=== PATIENT | male | born 1950 | race Asian ===

== ENCOUNTER 2017-04-19 23:28 | Inpatient (IN) | payer BC ==
[~2017-04-19] VITALS: Ht 167.6 cm; Wt 74.4 kg
[~2017-04-19 23:28] MED LIST: METHADONE5 MG PO; NOR10 PO; OXYCODONE5 M1 PO; TOP50 PO; VIS25 PO
[2017-04-20] VITALS (8 sets, daily range): BP systolic 121–161; BP diastolic 72–83
[2017-04-20 00:40] LABS: BASOPHIL % 0.1 % (0-2); CALCIUM 8.1 mg/dL (8.5-10.1); CARBON DIOXIDE 24.7 mmol/L (21-32); CHLORIDE SERUM 107 mmol/L (98-107); CREATININE SERUM 1.1 mg/dL (0.7-1.3); GFR1 > 60 mL/min; GLUCOSE SERUM 146 mg/dL (74-106); PLATELET COUNT 145 x10^3mcL (130-400); POTASSIUM SERUM 3.2 mmol/L (3.5-5.1); SODIUM SERUM 140 mmol/L (136-145)
[2017-04-20 00:42] LABS: RED CELL DISTRIBUTION WIDTH 14.6 % (11.5-14.5)
[2017-04-20 00:47] LABS: ALKALINE PHOSPHATASE 51 U/L (46-116); ALT/SGPT 36 U/L (16-63); AST/SGOT 40 U/L (15-37); BILIRUBIN TOTAL 1.1 mg/dL (0.20-1.00); TOTAL PROTEIN, SERUM 6.5 g/dL (6.4-8.2)
[2017-04-20 00:50] LABS: ALBUMIN 2.9 g/dL (3.4-5.0)
[2017-04-20 04:15] LABS: RED BLOOD CELLS 4.75 M/mm3 (4.52-5.90)
[2017-04-20 04:25] LABS: MAGNESIUM 1.6 mg/dL (1.8-2.4); PHOSPHOROUS 1.2 mg/dL (2.5-4.9)
[2017-04-20 04:27] LABS: CHOLESTEROL/HDL RATIO 4.2
[2017-04-20 04:31] LABS: FREE T4 1.29 ng/dL (0.76-1.46); FREE THYROXINE INDEX 2.5 ug/dL (1.4-4.5); T4(THYROXINE) 6.5 ug/dL (4.7-13.3)
[2017-04-20 04:36] LABS: T3 TOTAL 0.74 ng/mL
[2017-04-20 07:38] LABS: BASOPHIL % 0.1 % (0-2); PLATELET COUNT 159 x10^3mcL (130-400); RED CELL DISTRIBUTION WIDTH 14.4 % (11.5-14.5)
[2017-04-20 08:32] LABS: IRON 44 ug/dL (65-170)
[2017-04-20 08:38] LABS: TOTAL IRON BINDING CAPACITY 405 ug/dL (250-450)
[2017-04-20 08:51] LABS: microscopic required? NO
[2017-04-20 09:33] LABS: urine erythrocyte NEGATIVE (NEGATIVE)
[2017-04-20 09:50] LABS: AMPHETAMINE QUAL UR NONE DETECTED (NEG <=1000)
[2017-04-21 03:30] VITALS: BP 129/74
[2017-04-21 05:39] LABS: BASOPHIL % 0.3 % (0-2); PLATELET COUNT 160 x10^3mcL (130-400); RED CELL DISTRIBUTION WIDTH 14.4 % (11.5-14.5)
[2017-04-21 06:14] LABS: CALCIUM 7.9 mg/dL (8.5-10.1); CARBON DIOXIDE 27.1 mmol/L (21-32); CHLORIDE SERUM 105 mmol/L (98-107); CREATININE SERUM 0.9 mg/dL (0.7-1.3); GFR1 > 60 mL/min; GLUCOSE SERUM 123 mg/dL (74-106); MAGNESIUM 1.5 mg/dL (1.8-2.4); PHOSPHOROUS 2.1 mg/dL (2.5-4.9); POTASSIUM SERUM 3.1 mmol/L (3.5-5.1); SODIUM SERUM 137 mmol/L (136-145)
[2017-04-21 06:23] LABS: ALBUMIN 2.4 g/dL (3.4-5.0)
[2017-04-21 07:30] VITALS: BP 115/93
[2017-04-21 08:51] VITALS: Ht 167.6 cm; Wt 74.4 kg
[2017-04-21 12:15] VITALS: BP 89/64
[2017-04-21 17:10] VITALS: BP 139/90
[2017-04-21 21:31] VITALS: BP 136/87
[2017-04-22 05:29] VITALS: BP 136/88
[2017-04-22 06:03] LABS: BASOPHIL % 0.5 % (0-2); PLATELET COUNT 181 x10^3mcL (130-400); RED CELL DISTRIBUTION WIDTH 14.1 % (11.5-14.5)
[2017-04-22 06:14] LABS: CALCIUM 8.3 mg/dL (8.5-10.1); CARBON DIOXIDE 24.9 mmol/L (21-32); CHLORIDE SERUM 104 mmol/L (98-107); CREATININE SERUM 0.8 mg/dL (0.7-1.3); GFR1 > 60 mL/min; GLUCOSE SERUM 96 mg/dL (74-106); MAGNESIUM 1.6 mg/dL (1.8-2.4); PHOSPHOROUS 2.7 mg/dL (2.5-4.9); POTASSIUM SERUM 3.5 mmol/L (3.5-5.1); SODIUM SERUM 140 mmol/L (136-145)
[2017-04-22 10:04] VITALS: BP 120/82
[2017-04-22 14:50] VITALS: BP 135/84
[2017-04-22 18:06] VITALS: BP 134/89
[2017-04-22 22:00] VITALS: BP 145/96
[2017-04-23 05:43] VITALS: BP 127/87
[2017-04-23 06:47] LABS: BASOPHIL % 0.3 % (0-2); PLATELET COUNT 176 x10^3mcL (130-400); RED CELL DISTRIBUTION WIDTH 14.4 % (11.5-14.5)
[2017-04-23 07:01] LABS: CALCIUM 8.2 mg/dL (8.5-10.1); CHLORIDE SERUM 106 mmol/L (98-107); CREATININE SERUM 0.9 mg/dL (0.7-1.3); GFR1 > 60 mL/min; GLUCOSE SERUM 97 mg/dL (74-106); MAGNESIUM 1.8 mg/dL (1.8-2.4); POTASSIUM SERUM 3.6 mmol/L (3.5-5.1); SODIUM SERUM 142 mmol/L (136-145)
[2017-04-23 08:54] VITALS: BP 135/81
[2017-04-23 13:37] VITALS: BP 151/99
[2017-04-23 17:56] VITALS: BP 145/97
[2017-04-23 21:51] VITALS: BP 157/95
[2017-04-24 06:24] VITALS: BP 157/96
[2017-04-24 10:38] VITALS: BP 139/93
[2017-04-24 14:27] VITALS: BP 168/102
[2017-04-24 17:51] VITALS: BP 147/94
[2017-04-24 18:05] VITALS: BP 147/94
[2017-04-24 21:27] VITALS: BP 117/84
[2017-04-25 05:30] VITALS: BP 141/95
[2017-04-25 09:53] VITALS: BP 159/93
[2017-04-25 13:13] VITALS: BP 128/86
[2017-04-25] MEDS ORDERED: LEV500PM IV (14:04)
[2017-04-25] MEDS ORDERED: CLINDAMYCI600 MG/50 IV (14:06)
[2017-04-25] MEDS ORDERED: LAC PO (14:07)
[2017-04-25] MEDS ORDERED: PROTONIX40 MG/Pac1 PO (14:08)
[2017-04-25 14:39] VITALS: BP 128/86
== END 2017-04-25 15:45 | DRG 177 ==
LOC: ED 23:28 → IC 04-20 02:42 → DU 04-20 02:42 → IC 04-20 03:11 → DU 04-21 16:58
PROVIDERS: Emergency Medicine; Family Medicine; Internal Medicine; ADMIT Family Medicine
PROC: 0DB78ZX Excision of Stomach, Pylorus, Via Natural or Artificial Opening Endoscopic, Diagnostic (ICD-10-PCS; principal; 2017-04-21 12:30)
DX: J69.0 Pneumonitis due to inhalation of food and vomit (principal); J96.00 Acute respiratory failure, unspecified whether with hypoxia or hypercapnia; E43 Unspecified severe protein-calorie malnutrition; K92.2 Gastrointestinal hemorrhage, unspecified; E87.2 Acidosis; I50.30 Unspecified diastolic (congestive) heart failure; I11.0 Hypertensive heart disease with heart failure; M54.5 Low back pain; G89.29 Other chronic pain; E83.52 Hypercalcemia; E87.6 Hypokalemia; E83.51 Hypocalcemia; E80.6 Other disorders of bilirubin metabolism; F41.9 Anxiety disorder, unspecified; D50.9 Iron deficiency anemia, unspecified; E83.42 Hypomagnesemia; R73.03 Prediabetes; K29.60 Other gastritis without bleeding; Z68.25 Body mass index [BMI] 25.0-25.9, adult; Z87.891 Personal history of nicotine dependence; Z79.891 Long term (current) use of opiate analgesic; Z87.11 Personal history of peptic ulcer disease; Z79.899 Other long term (current) drug therapy
CPT/HCPCS: 36600; 43235; 82962; 83880; 84439; 97110-GP; 97116-GP; 97530-GP; C9113; J0456; J0696; J1200; J1610; J1940; J1956; J2250; J2270; J2310; J2405; J2550; J2765; J3010; J3475; J3480; J3490; J7030; J7040; J7050; J7613; J7620; Q0092

== ENCOUNTER 2017-05-11 02:55 | Observation (INO) | payer OTHER, BC ==
[~2017-05-11] VITALS: Ht 167.6 cm; Wt 71.4 kg
[~2017-05-11 02:55] MED LIST changes: +CLINDAMYCI600 MG/50 IV; +LAC PO; +LEV500PM IV; +PROTONIX40 MG/Pac1 PO
--- NOTE | 2017-05-11 03:15 | NUR ---
PT PRESENTS TO ED WITH C/O ALOC. PT AROUSABLE TO VERBAL STIMULI AND ORIENTED TO PERSON AND PLACE. WHEN ASKED THE YEAR PT STATES "[id number]". PER DTR, PT WOKE UP AROUND 0200 AND TRIED GOING OUTSIDE. PER DTR, PT WAS WALKING IN THE DARK AND "HE HAD A KNIFE, SCISSORS AND COMPUTER MOUSE AND CUT HIS PANTS". WHEN ASKED PT WHY HE CUT HIS PANTS HE STATES, "I WANTED TO SEE WHAT WOULD HAPPEN". PT PLACED ON 02 9L VIA NRB. PT DENIES ANY PAIN OR DISCOMFORT. BED IN LOW POSITION. DTR AT BEDSIDE. CALL LIGHT WITHIN REACH.
--- NOTE | 2017-05-11 03:32 | NUR ---
DR. MCDONOUGH AT BEDSIDE FOR MSE.
[2017-05-11 04:05] LABS: CARBON DIOXIDE 22.4 mmol/L (21-32); CREATININE SERUM 1.6 mg/dL (0.7-1.3); POTASSIUM SERUM 4.1 mmol/L (3.5-5.1)
[2017-05-11 04:10] LABS: BASOPHIL % 0.4 % (0-2); BILIRUBIN TOTAL 1.19 mg/dL (0.20-1.00); PLATELET COUNT 170 x10^3mcL (130-400); TOTAL PROTEIN, SERUM 7.1 g/dL (6.4-8.2)
[2017-05-11 04:11] LABS: RED CELL DISTRIBUTION WIDTH 14.8 % (11.5-14.5)
[2017-05-11 04:14] LABS: ALBUMIN 3.1 g/dL (3.4-5.0)
--- NOTE | 2017-05-11 04:14 | NUR ---
PT SLEEPING IN BED, IN POSITION OF COMFORT. EASILY AROUSABLE TO VERBAL STIMULI. RESPIRATIONS EVEN AND UNLABORED. NO ACUTE DISTRESS NOTED. BED IN LOW POSITION. CALL LIGHT WITHIN REACH.
[2017-05-11 04:21] LABS: microscopic required? NO
[2017-05-11 04:32] LABS: urine erythrocyte NEGATIVE (NEGATIVE)
[2017-05-11] MEDS ORDERED: OXYCODONE HYDROC5 M2 PO (04:49)
[2017-05-11] MEDS ORDERED: MSC100 PO (04:50)
[2017-05-11] MEDS ORDERED: NOR10 PO ×2 (04:51→20:15)
[2017-05-11] MEDS ORDERED: METHADONE HCL5 MG PO (04:51)
[2017-05-11] MEDS ORDERED: METOPROLOL SUCC50 M2 PO (04:51)
[2017-05-11] MEDS ORDERED: PANTOPRAZOLE SO40 M1 PO (04:52)
--- NOTE | 2017-05-11 06:26 | NUR ---
LAB AT BEDSIDE.
[2017-05-11 07:32] LABS: T3 TOTAL 1.01 ng/mL
[2017-05-11 07:35] LABS: MAGNESIUM 1.4 mg/dL (1.8-2.4); PHOSPHOROUS 2.4 mg/dL (2.5-4.9)
[2017-05-11 07:45] LABS: FREE T4 1.06 ng/dL (0.76-1.46); FREE THYROXINE INDEX 2.6 ug/dL (1.4-4.5); T4(THYROXINE) 7.1 ug/dL (4.7-13.3)
--- NOTE | 2017-05-11 07:48 | NUR ---
PT RESTING IN A SEMI-FOWLERS POSITION IN LOW POSITIONED BED WITH SIDE RAILS UP X 2 AND CALL LIGHT WITHIN REACH. PTS DAUGHTER AT BEDSIDE WITH THE PT.
--- NOTE | 2017-05-11 07:49 | NUR ---
PT IS A/O X 4 AND ANSWERING QUESTIONS APPROPRIATELY. NON-REBREATHER REMOVED AND PT PLACED ON NC AT 3L/M. PTS O2 IS 98%.
--- NOTE | 2017-05-11 08:04 | NUR ---
REPORT CALLED TO LIU CABRAL TO ASSUME CARE FOR THIS PT POST TRANSFER FROM ED TO TELE UNIT
[2017-05-11 08:47] VITALS: BP 103/75
--- NOTE | 2017-05-11 10:07 | NUR ---
PT ON BED, AWAKE, ALERT, AND ORIENTED. HAS NO COMPLAINT OF PAIN, SOB, OR DIZZINESS. RESPONDS WELL TO QUESTION AND ANSWER. PT IS MANDRAIN SPEAKING ONLY. DAUGHTER AT BEDSIDE PROVIDING TRANSLATION. DIMINISHED JESSICA BASES ON 4LNC WITH SYMMETRICAL CHEST EXPANSION AND UNLABORED. ACTIVE BOWEL SOUNDS NOTED. SIDE RAILS UP, CALL LIGHT WITHIN REACH, WILL CONTINUE TO MONITOR
--- NOTE | 2017-05-11 12:52 | NUR ---
PT ON BED, ASLEEP. WILL CONTINUE TO MONITOR
[2017-05-11 13:54] VITALS: BP 110/72
--- NOTE | 2017-05-11 15:00 | NUR ---
PT ON BED, AWAKE, ALERT, AND ORIENTED. HAS NO COMPLAINT OF PAIN, SOB, OR DIZZINESS
[2017-05-11 17:24] VITALS: BP 113/79
--- NOTE | 2017-05-11 17:28 | NUR ---
PT ON BED, ASLEEP. WILL CONTINUE TO MONITOR
[2017-05-11 17:58] VITALS: BP 113/79
[2017-05-11 18:36] LABS: IRON 57 ug/dL (65-170); TOTAL IRON BINDING CAPACITY 260 ug/dL (250-450)
[2017-05-11 19:02] LABS: RED BLOOD CELLS 4.93 M/mm3 (4.52-5.90)
--- NOTE | 2017-05-11 19:50 | NUR ---
PT IS AAOX4. MANDARIN SPEAKING. LUNGS SOUNDS ARE DIMINISHED BILATERALLY, PT ON 3L NC. EVEN, UNLABORED BREATHING. DENIES ANY PAIN AT THIS TIME. BOWEL SOUNDS ACTIVE. NO EDEMA PRESENT. BED IN LOWEST POSITION AND CALL LIGHT IS WITHIN REACH. WILL CONTINUE TO MONITOR.
[2017-05-11] MEDS ORDERED: DIOVAN HCT1 TA1 PO (20:12)
[2017-05-11] MEDS ORDERED: TOPROL XL25 MG PO (20:14)
[2017-05-11] MEDS ORDERED: OMEPRAZOLE40 M1 PO (20:14)
[2017-05-11] MEDS ORDERED: HYDROXYZINE HYD25 MG PO (20:16)
--- NOTE | 2017-05-11 20:19 | NUR ---
MED RECORD HAS BEEN UPDATED WITH PT'S HOME MEDICATIONS. DAUGHTER TOOK THE MEDICATIONS HOME, SHE STATED SHE WILL BRING THEM BACK TOMORROW WHEN SHE VISITS. PAGE GATED DR. FLORES ABOUT THE MATTER. AWAITING ORDERS.
[2017-05-11 20:55] VITALS: BP 108/69
--- NOTE | 2017-05-11 21:30 | NUR ---
SPOKE WITH DR. FARLEY, HE APPROVED THE NECESSARY MEDICATIONS, WILL ENDORSE TO MORNING SHIFT.
--- NOTE | 2017-05-12 01:04 | NUR ---
PT SLEEPING COMFORTABLY. NO ACUTE DISTRESS NOTED. BED IN LOWEST POSITION AND CALL LIGHT WITHIN REACH. WILL CONTINUE TO MONITOR.
[2017-05-12 05:09] VITALS: BP 123/76
--- NOTE | 2017-05-12 05:25 | NUR ---
PT IS RESTING COMFORTABLY IN BED. EVEN, UNLABORED BREATHING. ALL NEEDS HAVE BEEN MET. PT DENIES ANY PAIN. BED IN LOWEST POSITION AND CALL LIGHT WITHIN REACH. WILL ENDORSE TO MORNING SHIFT.
[2017-05-12 05:52] LABS: BASOPHIL % 0.2 % (0-2); PLATELET COUNT 160 x10^3mcL (130-400)
[2017-05-12 05:57] LABS: CALCIUM 8.5 mg/dL (8.5-10.1); CARBON DIOXIDE 26.7 mmol/L (21-32); CHLORIDE SERUM 104 mmol/L (98-107); GFR1 > 60 mL/min; GLUCOSE SERUM 167 mg/dL (74-106); PHOSPHOROUS 1.8 mg/dL (2.5-4.9); POTASSIUM SERUM 3.6 mmol/L (3.5-5.1); RED CELL DISTRIBUTION WIDTH 15.5 % (11.5-14.5); SODIUM SERUM 142 mmol/L (136-145)
--- NOTE | 2017-05-12 08:36 | NUR ---
AM ROUNDS DONE BY DR. ABDUL AND MEDICAL TEAM, PLAN TO DC HOME TODAY.
[2017-05-12 09:43] VITALS: BP 113/72
[2017-05-12 13:16] VITALS: Ht 167.6 cm; Wt 71.4 kg
[2017-05-12 13:53] VITALS: BP 119/75
[2017-05-12] MEDS ORDERED: CLEOCIN HCL300 MG PO (15:49)
[2017-05-12] MEDS ORDERED: LEVAQUIN750 MG PO (15:51)
[2017-05-12] MEDS ORDERED: LAC PO (15:52)
[2017-05-12 16:29] VITALS: BP 119/75
--- NOTE | 2017-05-12 17:21 | NUR ---
PT DC'D HOME IN NO DISTRESS. AWAKE ALERT AND ORIENTED. NO CHANGES IN VS. NO C/O PAIN OR DISCOMFORT. DC INSTRUCTIONS REVIEWED WITH PT AND DAUGHTER. RX GIVEN. HL REMOVED AND SITE CLEAR. PERSONAL BELONGINGS TAKEN HOME.
== END 2017-05-12 17:00 | disposition home or self-care (01) | DRG 177 ==
LOC: ED 02:55 → DU 07:09
PROVIDERS: Emergency Medicine; ADMIT Family Medicine
DX: J69.0 Pneumonitis due to inhalation of food and vomit (principal); N17.0 Acute kidney failure with tubular necrosis; E44.0 Moderate protein-calorie malnutrition; E83.39 Other disorders of phosphorus metabolism; E83.42 Hypomagnesemia; D50.9 Iron deficiency anemia, unspecified; I10 Essential (primary) hypertension; M54.5 Low back pain; G89.29 Other chronic pain; Z68.25 Body mass index [BMI] 25.0-25.9, adult; Z79.891 Long term (current) use of opiate analgesic
CPT/HCPCS: 36600; 82962; 83880; 84439; G0378; J1940; J2543; J2930; J3475; J7030; Q0092

== ENCOUNTER 2017-06-05 20:41 | Emergency (ER) | payer OTHER, BC ==
[~2017-06-05 20:41] MED LIST changes: +CLEOCIN HCL300 MG PO; +DIOVAN HCT1 TA1 PO; +HYDROXYZINE HYD25 MG PO; +LEVAQUIN750 MG PO; +METHADONE HCL5 MG PO; +METOPROLOL SUCC50 M2 PO; +MSC100 PO; +OMEPRAZOLE40 M1 PO; +OXYCODONE HYDROC5 M2 PO; +PANTOPRAZOLE SO40 M1 PO; +TOPROL XL25 MG PO
[2017-06-05 22:00] LABS: BASOPHIL % 0.3 % (0-2); PLATELET COUNT 318 x10^3mcL (130-400); RED CELL DISTRIBUTION WIDTH 14.4 % (11.5-14.5)
[2017-06-05 22:04] LABS: microscopic required? NO
[2017-06-05 22:14] LABS: urine erythrocyte NEGATIVE (NEGATIVE)
[2017-06-05 22:15] LABS: ALBUMIN 3.2 g/dL (3.4-5.0); ALKALINE PHOSPHATASE 78 U/L (46-116); ALT/SGPT 95 U/L (16-63); AST/SGOT 91 U/L (15-37); BILIRUBIN TOTAL 0.6 mg/dL (0.20-1.00); CARBON DIOXIDE 28.6 mmol/L (21-32); CHLORIDE SERUM 101 mmol/L (98-107); CHOLESTEROL 184 mg/dL (<200); GFR1 > 60 mL/min; GLUCOSE SERUM 137 mg/dL (74-106); HDL CHOLESTEROL 29 mg/dL (40-60); MAGNESIUM 1.7 mg/dL (1.8-2.4); SODIUM SERUM 136 mmol/L (136-145); TOTAL PROTEIN, SERUM 7.6 g/dL (6.4-8.2)
[2017-06-05 22:18] LABS: POTASSIUM SERUM 2.9 mmol/L (3.5-5.1)
[2017-06-05 22:23] LABS: AMPHETAMINE QUAL UR NONE DETECTED (NEG <=1000)
[2017-06-05 22:25] LABS: T4(THYROXINE) 9.2 ug/dL (4.7-13.3)
[2017-06-06 00:11] VITALS: BP 125/79
== END 2017-06-06 00:11 | disposition home or self-care (01) ==
LOC: ED 20:41
PROVIDERS: Emergency Medicine
DX: R53.1 Weakness (principal); R42 Dizziness and giddiness; E87.6 Hypokalemia; E46 Unspecified protein-calorie malnutrition; I10 Essential (primary) hypertension; E11.9 Type 2 diabetes mellitus without complications; G89.29 Other chronic pain; M54.9 Dorsalgia, unspecified
CPT/HCPCS: 82962; 83880; J7030; Q0092

== ENCOUNTER 2017-06-27 17:13 | Emergency (ER) | payer OTHER, BC ==
[2017-06-27 17:58] LABS: BASOPHIL % 0.4 % (0-2); PLATELET COUNT 289 x10^3mcL (130-400)
[2017-06-27 18:02] LABS: CALCIUM 8.8 mg/dL (8.5-10.1); CARBON DIOXIDE 25.5 mmol/L (21-32); CHLORIDE SERUM 99 mmol/L (98-107); CREATININE SERUM 0.9 mg/dL (0.7-1.3); GFR1 > 60 mL/min; GLUCOSE SERUM 124 mg/dL (74-106); POTASSIUM SERUM 4.3 mmol/L (3.5-5.1); SODIUM SERUM 133 mmol/L (136-145)
[2017-06-27 18:06] LABS: ALKALINE PHOSPHATASE 97 U/L (46-116); ALT/SGPT 62 U/L (16-63); AST/SGOT 75 U/L (15-37)
[2017-06-27 18:07] LABS: ALBUMIN 3.2 g/dL (3.4-5.0); TOTAL PROTEIN, SERUM 8.7 g/dL (6.4-8.2)
[2017-06-27 18:25] LABS: RED CELL DISTRIBUTION WIDTH 15.1 % (11.5-14.5)
[2017-06-27 19:44] VITALS: BP 129/92
== END 2017-06-27 19:45 | disposition home or self-care (01) ==
LOC: ED 17:13
PROVIDERS: Emergency Medicine
DX: R53.1 Weakness (principal); R11.2 Nausea with vomiting, unspecified; I10 Essential (primary) hypertension; E11.9 Type 2 diabetes mellitus without complications; Z79.899 Other long term (current) drug therapy
CPT/HCPCS: J7030

== ENCOUNTER 2018-01-25 19:33 | Inpatient (IN) | payer OTHER, BC ==
[~2018-01-25] VITALS: Ht 167.6 cm; Wt 69.0 kg
[2018-01-25 21:30] LABS: microscopic required? NO
[2018-01-25 21:32] LABS: ALBUMIN 3.9 g/dL (3.4-5.0); ALKALINE PHOSPHATASE 56 U/L (46-116); ALT/SGPT 78 U/L (16-63); AST/SGOT 55 U/L (15-37); BILIRUBIN TOTAL 0.62 mg/dL (0.20-1.00); CALCIUM 10.1 mg/dL (8.5-10.1); CARBON DIOXIDE 34.3 mmol/L (21-32); CHLORIDE SERUM 99 mmol/L (98-107); CREATININE SERUM 1.2 mg/dL (0.7-1.3); GFR1 > 60 mL/min; GLUCOSE SERUM 94 mg/dL (74-106); LIPASE 166 IU/L (73-393); SODIUM SERUM 144 mmol/L (136-145); TOTAL PROTEIN, SERUM 8.1 g/dL (6.4-8.2)
[2018-01-25 21:33] LABS: BASOPHIL % 0.2 % (0-2); PLATELET COUNT 193 x10^3mcL (130-400)
[2018-01-25 21:34] LABS: AMYLASE 144 U/L (25-115); POTASSIUM SERUM 2.8 mmol/L (3.5-5.1)
[2018-01-25 21:38] LABS: urine erythrocyte NEGATIVE (NEGATIVE)
[2018-01-25 21:39] LABS: RED CELL DISTRIBUTION WIDTH 14.7 % (11.5-14.5)
[2018-01-25] MEDS ORDERED: NAPROSYN500 MG (22:06)
[2018-01-25 23:25] VITALS: BP 146/92
[2018-01-26] MEDS ORDERED: FERROUS SULFAT325 M2 PO (00:45)
[2018-01-26] MEDS ORDERED: LEADER NATURA500 MCG PO (00:46)
[2018-01-26] MEDS ORDERED: CLONIDINE HCL0.1 MG PO (00:47)
[2018-01-26] MEDS ORDERED: VITAMIN D50000 I4 PO (00:48)
[2018-01-26 03:25] LABS: MAGNESIUM 3.2 mg/dL (1.8-2.4); PHOSPHOROUS 2.8 mg/dL (2.5-4.9)
[2018-01-26 03:33] LABS: FREE T4 1.21 ng/dL (0.76-1.46); FREE THYROXINE INDEX 2.6 ug/dL (1.4-4.5); T4(THYROXINE) 7.5 ug/dL (4.7-13.3)
[2018-01-26 03:39] LABS: CHOLESTEROL/HDL RATIO 5.6
[2018-01-26 03:50] LABS: BASOPHIL % 0.6 % (0-2); PLATELET COUNT 147 x10^3mcL (130-400)
[2018-01-26 04:21] LABS: CALCIUM 9.3 mg/dL (8.5-10.1); CARBON DIOXIDE 30.8 mmol/L (21-32); CHLORIDE SERUM 99 mmol/L (98-107); CREATININE SERUM 1.1 mg/dL (0.7-1.3); GFR1 > 60 mL/min; GLUCOSE SERUM 110 mg/dL (74-106); SODIUM SERUM 140 mmol/L (136-145)
[2018-01-26 04:24] LABS: POTASSIUM SERUM 2.6 mmol/L (3.5-5.1)
[2018-01-26 06:10] VITALS: BP 140/87
[2018-01-26 08:18] VITALS: BP 133/96
[2018-01-26 08:19] LABS: AMPHETAMINE QUAL UR NONE DETECTED (NEG <=1000)
[2018-01-26 09:15] LABS: T3 TOTAL 0.69 ng/mL
[2018-01-26 12:35] VITALS: BP 122/89
[2018-01-26 15:03] LABS: CHLORIDE SERUM 100 mmol/L (98-107); CREATININE SERUM 1.1 mg/dL (0.7-1.3); GFR1 > 60 mL/min; GLUCOSE SERUM 89 mg/dL (74-106); POTASSIUM SERUM 3.4 mmol/L (3.5-5.1); SODIUM SERUM 137 mmol/L (136-145)
[2018-01-26 17:38] VITALS: BP 97/64
[2018-01-26 18:51] VITALS: Ht 167.6 cm; Wt 69.0 kg
[2018-01-26 20:44] VITALS: BP 135/93
[2018-01-27 05:07] VITALS: BP 116/89
[2018-01-27 07:13] LABS: CALCIUM 8.2 mg/dL (8.5-10.1); CARBON DIOXIDE 29.2 mmol/L (21-32); CHLORIDE SERUM 102 mmol/L (98-107); CREATININE SERUM 0.9 mg/dL (0.7-1.3); GFR1 > 60 mL/min; GLUCOSE SERUM 92 mg/dL (74-106); MAGNESIUM 1.7 mg/dL (1.8-2.4); SODIUM SERUM 138 mmol/L (136-145)
[2018-01-27 08:05] LABS: BASOPHIL % 0.4 % (0-2); PLATELET COUNT 156 x10^3mcL (130-400); RED CELL DISTRIBUTION WIDTH 15.4 % (11.5-14.5)
[2018-01-27 09:18] VITALS: BP 124/88
[2018-01-27 17:29] VITALS: BP 122/86
[2018-01-27 20:09] LABS: CALCIUM 8.4 mg/dL (8.5-10.1); CARBON DIOXIDE 32.3 mmol/L (21-32); CHLORIDE SERUM 102 mmol/L (98-107); GFR1 > 60 mL/min; GLUCOSE SERUM 99 mg/dL (74-106); MAGNESIUM 1.9 mg/dL (1.8-2.4); POTASSIUM SERUM 3.9 mmol/L (3.5-5.1); SODIUM SERUM 140 mmol/L (136-145)
[2018-01-27 21:08] VITALS: BP 138/69
[2018-01-27 23:58] VITALS: BP 105/83
[2018-01-28 05:42] VITALS: BP 132/88
[2018-01-28 06:05] LABS: BASOPHIL % 0.6 % (0-2); PLATELET COUNT 156 x10^3mcL (130-400)
[2018-01-28 06:36] LABS: CALCIUM 8.3 mg/dL (8.5-10.1); CARBON DIOXIDE 27.2 mmol/L (21-32); CHLORIDE SERUM 105 mmol/L (98-107); GFR1 > 60 mL/min; GLUCOSE SERUM 100 mg/dL (74-106); MAGNESIUM 1.8 mg/dL (1.8-2.4); PHOSPHOROUS 3.5 mg/dL (2.5-4.9); POTASSIUM SERUM 3.6 mmol/L (3.5-5.1); SODIUM SERUM 137 mmol/L (136-145)
[2018-01-28 06:43] LABS: RED CELL DISTRIBUTION WIDTH 14.9 % (11.5-14.5)
[2018-01-28 08:57] VITALS: BP 115/83
[2018-01-28 17:49] VITALS: BP 144/94
[2018-01-28 21:43] VITALS: BP 134/86
[2018-01-29 05:33] VITALS: BP 126/85
[2018-01-29 07:23] LABS: BASOPHIL % 0.5 % (0-2); PLATELET COUNT 168 x10^3mcL (130-400)
[2018-01-29 07:41] LABS: CALCIUM 8.5 mg/dL (8.5-10.1); CARBON DIOXIDE 27.2 mmol/L (21-32); CHLORIDE SERUM 104 mmol/L (98-107); CREATININE SERUM 0.9 mg/dL (0.7-1.3); GFR1 > 60 mL/min; GLUCOSE SERUM 102 mg/dL (74-106); MAGNESIUM 1.8 mg/dL (1.8-2.4); POTASSIUM SERUM 3.2 mmol/L (3.5-5.1); SODIUM SERUM 140 mmol/L (136-145)
[2018-01-29 08:14] LABS: rbc morphology (normal/abnorm) ABNORMAL (NORMAL)
[2018-01-29 08:59] VITALS: BP 125/88
[2018-01-29] MEDS ORDERED: FLA500 PO (12:31)
[2018-01-29] MEDS ORDERED: LAC PO (12:32)
[2018-01-29 13:46] VITALS: BP 125/88
== END 2018-01-29 15:25 | disposition home or self-care (01) | DRG 373 ==
LOC: ED 19:33 → DU 22:01 → MU 01-28 08:24
PROVIDERS: Emergency Medicine; Family Medicine; Family Medicine Sports Medicine
DX: A04.72 Enterocolitis due to Clostridium difficile, not specified as recurrent (principal); K52.9 Noninfective gastroenteritis and colitis, unspecified; I10 Essential (primary) hypertension; E87.6 Hypokalemia; A08.4 Viral intestinal infection, unspecified; G89.4 Chronic pain syndrome; E78.5 Hyperlipidemia, unspecified; D50.9 Iron deficiency anemia, unspecified; E66.9 Obesity, unspecified; E11.51 Type 2 diabetes mellitus with diabetic peripheral angiopathy without gangrene; E83.42 Hypomagnesemia; Z68.26 Body mass index [BMI] 26.0-26.9, adult; Z86.19 Personal history of other infectious and parasitic diseases
CPT/HCPCS: 83880; 84439; 87046; 87046-59; J0500; J1885; J1956; J3480; J3490; J7030; Q0092; Q9966; Q9967

== ENCOUNTER 2018-02-02 10:34 | Emergency (ER) | payer OTHER, BC ==
[~2018-02-02] VITALS: Ht 167.6 cm; Wt 65.3 kg
[~2018-02-02 10:34] MED LIST changes: +CLONIDINE HCL0.1 MG PO; +FERROUS SULFAT325 M2 PO; +FLA500 PO; +LEADER NATURA500 MCG PO; +NAPROSYN500 MG; +VITAMIN D50000 I4 PO
[2018-02-02 11:35] LABS: BASOPHIL % 0.6 % (0-2); PLATELET COUNT 197 x10^3mcL (130-400)
[2018-02-02 11:36] LABS: RED CELL DISTRIBUTION WIDTH 14.8 % (11.5-14.5)
[2018-02-02 11:52] LABS: ALBUMIN 3.6 g/dL (3.4-5.0); ALKALINE PHOSPHATASE 54 U/L (46-116); ALT/SGPT 71 U/L (16-63); AST/SGOT 48 U/L (15-37); BILIRUBIN TOTAL 0.6 mg/dL (0.20-1.00); CALCIUM 8.7 mg/dL (8.5-10.1); CARBON DIOXIDE 26.8 mmol/L (21-32); CHLORIDE SERUM 104 mmol/L (98-107); CREATININE SERUM 0.9 mg/dL (0.7-1.3); GFR1 > 60 mL/min; GLUCOSE SERUM 108 mg/dL (74-106); LIPASE 161 IU/L (73-393); SODIUM SERUM 137 mmol/L (136-145); TOTAL PROTEIN, SERUM 7.6 g/dL (6.4-8.2)
[2018-02-02 11:57] LABS: AMYLASE 116 U/L (25-115)
[2018-02-02 11:58] LABS: POTASSIUM SERUM 2.8 mmol/L (3.5-5.1)
[2018-02-02 13:37] VITALS: BP 126/88
== END 2018-02-02 13:37 | disposition home or self-care (01) ==
LOC: ED 10:34
PROVIDERS: Emergency Medicine
DX: K29.00 Acute gastritis without bleeding (principal); I10 Essential (primary) hypertension; E11.9 Type 2 diabetes mellitus without complications; Z87.19 Personal history of other diseases of the digestive system
CPT/HCPCS: 36415; 83880; J1885; Q0162

== ENCOUNTER 2018-04-04 18:58 | Inpatient (IN) | payer OTHER, BC ==
[~2018-04-04] VITALS: Ht 167.6 cm; Wt 66.2 kg
[2018-04-04 19:30] VITALS: Ht 167.6 cm; Wt 66.2 kg
[2018-04-04 21:44] LABS: CALCIUM 11.9 mg/dL (8.5-10.1); CARBON DIOXIDE 28.1 mmol/L (21-32); CREATININE SERUM 1.5 mg/dL (0.7-1.3); POTASSIUM SERUM 3.4 mmol/L (3.5-5.1)
[2018-04-04 21:47] LABS: PLATELET COUNT 177 x10^3mcL (130-400); RED CELL DISTRIBUTION WIDTH 13.4 % (11.5-14.5)
[2018-04-04 21:49] LABS: ALBUMIN 3.8 g/dL (3.4-5.0); BILIRUBIN TOTAL 1.43 mg/dL (0.20-1.00); TOTAL PROTEIN, SERUM 7.8 g/dL (6.4-8.2)
[2018-04-04 21:53] LABS: microscopic required? YES; urine erythrocyte NEGATIVE (NEGATIVE)
[2018-04-04 22:21] LABS: BAND NEUTROPHIL 3 % (0-10); BASOPHIL 0 % (0-2); MONOCYTE 7 % (0-7); SEGMENTED NEUTROPHILS 80 % (37-75)
[2018-04-04 22:22] LABS: rbc morphology (normal/abnorm) ABNORMAL (NORMAL)
[2018-04-04] MEDS ORDERED: DIOVAN320 MG (23:20)
[2018-04-04] MEDS ORDERED: K10 (23:20)
[2018-04-05] VITALS (7 sets, daily range): BP systolic 105–155; BP diastolic 75–96
[2018-04-05 00:02] LABS: MAGNESIUM 1.8 mg/dL (1.8-2.4); PHOSPHOROUS 4.9 mg/dL (2.5-4.9)
[2018-04-05 00:10] LABS: FREE T4 1.32 ng/dL (0.76-1.46); FREE THYROXINE INDEX 2.9 ug/dL (1.4-4.5); T4(THYROXINE) 8.5 ug/dL (4.7-13.3)
[2018-04-05 00:13] LABS: CHOLESTEROL/HDL RATIO 5.2
[2018-04-05] MEDS ORDERED: METOPROLOL TART25 M1 PO (00:20)
[2018-04-05] MEDS ORDERED: METHADONE HCL10 MG PO (00:30)
[2018-04-05 00:39] LABS: T3 TOTAL 0.76 ng/mL
[2018-04-05 06:27] LABS: BASOPHIL % 0.3 % (0-2); PLATELET COUNT 163 x10^3mcL (130-400); RED CELL DISTRIBUTION WIDTH 13.7 % (11.5-14.5)
[2018-04-05 07:13] LABS: CALCIUM 10.1 mg/dL (8.5-10.1); CARBON DIOXIDE 27.7 mmol/L (21-32); CREATININE SERUM 1.7 mg/dL (0.7-1.3); MAGNESIUM 1.5 mg/dL (1.8-2.4); PHOSPHOROUS 4.6 mg/dL (2.5-4.9); POTASSIUM SERUM 4.1 mmol/L (3.5-5.1)
[2018-04-06 04:36] VITALS: BP 115/80
[2018-04-06 05:52] LABS: CALCIUM 8.3 mg/dL (8.5-10.1); CARBON DIOXIDE 28.9 mmol/L (21-32); CREATININE SERUM 1.8 mg/dL (0.7-1.3); POTASSIUM SERUM 4.1 mmol/L (3.5-5.1)
[2018-04-06 06:05] LABS: BASOPHIL % 0.1 % (0-2); PLATELET COUNT 135 x10^3mcL (130-400); RED CELL DISTRIBUTION WIDTH 13.3 % (11.5-14.5)
[2018-04-06 06:54] LABS: rbc morphology (normal/abnorm) ABNORMAL (NORMAL)
[2018-04-06 09:55] VITALS: BP 104/74
[2018-04-06 10:06] LABS: BILIRUBIN DIRECT 0.3 mg/dL (0.0-0.2); BILIRUBIN TOTAL 0.7 mg/dL (0.20-1.00); TOTAL PROTEIN, SERUM 6.4 g/dL (6.4-8.2)
[2018-04-06 10:31] LABS: ALBUMIN 2.6 g/dL (3.4-5.0)
[2018-04-06 17:33] VITALS: BP 111/73
[2018-04-06 20:52] VITALS: BP 105/73
[2018-04-07 06:00] VITALS: BP 123/79
[2018-04-07 06:50] LABS: CALCIUM 7.7 mg/dL (8.5-10.1); CARBON DIOXIDE 25.9 mmol/L (21-32); CREATININE SERUM 1.3 mg/dL (0.7-1.3); MAGNESIUM 1.9 mg/dL (1.8-2.4); POTASSIUM SERUM 3.1 mmol/L (3.5-5.1)
[2018-04-07 07:02] LABS: IRON 54 ug/dL (65-170)
[2018-04-07 07:28] LABS: TOTAL IRON BINDING CAPACITY 201 ug/dL (250-450)
[2018-04-07 07:59] LABS: BASOPHIL % 0.4 % (0-2); PLATELET COUNT 152 x10^3mcL (130-400); RED BLOOD CELLS 4.49 M/mm3 (4.52-5.90); RED CELL DISTRIBUTION WIDTH 13.6 % (11.5-14.5)
[2018-04-07 08:35] VITALS: BP 112/74
[2018-04-07] MEDS ORDERED: CARAFATE1 GM PO (12:15)
[2018-04-07] MEDS ORDERED: ELA10 PO (12:15)
[2018-04-07] MEDS ORDERED: PROTONIX40 MG PO (12:15)
[2018-04-07] MEDS ORDERED: FER300 PO (12:15)
[2018-04-07] MEDS ORDERED: AMITIZA24 MC1 PO (12:15)
[2018-04-07 12:27] VITALS: BP 112/74
== END 2018-04-07 15:15 | disposition home or self-care (01) | DRG 383 ==
LOC: ED 18:58 → DU 22:48
PROVIDERS: Emergency Medicine; Family Medicine; Internal Medicine Gastroenterology
PROC: 0DD98ZX Extraction of Duodenum, Via Natural or Artificial Opening Endoscopic, Diagnostic (ICD-10-PCS; principal; 2018-04-06 10:30)
DX: K26.9 Duodenal ulcer, unspecified as acute or chronic, without hemorrhage or perforation (principal); N17.0 Acute kidney failure with tubular necrosis; E43 Unspecified severe protein-calorie malnutrition; B18.1 Chronic viral hepatitis B without delta-agent; K21.9 Gastro-esophageal reflux disease without esophagitis; K29.80 Duodenitis without bleeding; K59.03 Drug induced constipation; K83.8 Other specified diseases of biliary tract; R73.03 Prediabetes; E87.6 Hypokalemia; E83.42 Hypomagnesemia; D50.9 Iron deficiency anemia, unspecified; R80.9 Proteinuria, unspecified; E78.5 Hyperlipidemia, unspecified; I10 Essential (primary) hypertension; G89.29 Other chronic pain; M54.5 Low back pain; Z98.1 Arthrodesis status; Z68.23 Body mass index [BMI] 23.0-23.9, adult; T40.2X5A Adverse effect of other opioids, initial encounter; T39.395A Adverse effect of other nonsteroidal anti-inflammatory drugs [NSAID], initial encounter; Y92.018 Other place in single-family (private) house as the place of occurrence of the external cause
CPT/HCPCS: 43235; 83880; 84439; C9113; J1200; J1610; J2250; J2270; J2310; J2405; J2543; J3010; J3475; J3490; J7030; Q0092